=== PATIENT | female | born 1995 ===

== ENCOUNTER 2016-10-09 20:08 | Emergency (ER) | payer BC ==
[2016-10-09 21:01] VITALS: RESP 18
[2016-10-09] MEDS ORDERED: Sodium Chloride 0.9% 1,000 ML IV ONE (21:15)
--- NOTE | 2016-10-09 21:16 | C.PDOC ---
History Of Present Illness 21 year old female who presents to the ER with a complaint of cramping periumbilical pain and diarrhea. Patient states she has relief with bowel movement; she also claims she is and had her outpatient HCG done at [facility], does not want STORE PERSON evaluation. Denies fever or chills. Time Seen by Provider: 10/09/16 21:11 Chief Complaint (Nursing): Abdominal Pain History Per: Patient History/Exam Limitations: no limitations Onset/Duration Of Symptoms: Hrs Current Symptoms Are (Timing): Still Present Location Of Pain/Discomfort: Periumbilical Radiation Of Pain To:: None Quality Of Discomfort: Cramping Associated Symptoms: Diarrhea. denies: Fever, Chills Exacerbating Factors: None Alleviating Factors: None Recent travel outside of the [place]: No Abnormal Vaginal Bleeding: No Past Medical History Reviewed: Historical Data, Nursing Documentation, Vital Signs Vital Signs: Last Vital Signs Temp 97.9 F 10/09/16 23:18 Pulse 95 H 10/09/16 23:18 Resp 18 10/09/16 23:18 BP 118/79 10/09/16 23:18 Pulse Ox 97 10/09/16 23:18 - Medical History PMH: Diabetes Surgical History: No Surg Hx Family History: States: Unknown Family Hx - Social History Hx Alcohol Use: No Hx Substance Use: No - Immunization History Hx Tetanus Toxoid Vaccination: No Hx Influenza Vaccination: No Hx Pneumococcal Vaccination: No Review Of Systems Constitutional: Negative for: Fever, Chills Gastrointestinal: Positive for: Abdominal Pain, Diarrhea Physical Exam - Physical Exam Appears: Other (obese, hersuit, buffalo hump, prounounced hair on body/back) Skin: Other (strech aj, ? stria.) Head: Atraumatic, Normacephalic Oral Mucosa: Moist Chest: Symmetrical, No Tenderness Cardiovascular: Rhythm Regular, No Murmur Respiratory: Normal Breath Sounds, No Rales, No Rhonchi, No Wheezing Gastrointestinal/Abdominal: Soft, Tenderness (Periumbilical) Pelvic: No Adnexal Tenderness Neurological/Psych: Oriented x3, Normal Speech, Normal Cognition ED Course And Treatment - Laboratory Results Result Diagrams: 10/09/16 21:26 10/09/16 21:26 Lab Interpretation: Abnormal (+ leukocytosis, Quant HCG 361 (low for ? 6-8 wks) O+ blood (per mother @ bedside)) Urine POC: Positive O2 Sat by Pulse Oximetry: 96 Pulse Ox Interpretation: Normal Progress Note: Morphine, zofran, and IV fluids administered. Reevaluation Time: 23:08 Reassessment Condition: Improved Medical Decision Making Medical Decision Making: missed AB (prior elevated QHCG @ [facility] unknown) crampy abd pain and diarrhea with relief suggest diarrheal illness diet and exercise educated. Disposition Doctor Will See Patient In The: Office Counseled Patient/Family Regarding: Studies Performed, Diagnosis - Disposition Referrals: [facility] [Outside] Disposition: HOME/ ROUTINE Disposition Time: 23:09 Condition: GOOD Additional Instructions: please repeat the Quant HCG (hormone of ) in 3 days (10/12) today 10/09 QHCG 361 (low) Diet and exercise precautions. Instructions: Threatened Miscarriage (ED), Irritable Bowel Syndrome (ED), Chronic Diarrhea (ED) - Clinical Impression Clinical Impression: Diarrhea, Threatened in first trimester - Scribe Statement The provider has reviewed the documentation as recorded by the Scribmariam Newby All medical record entries made by the Scribe were at my direction and personally dictated by me. I have reviewed the chart and agree that the record accurately reflects my personal performance of the history, physical exam, medical decision making, and the department course for this patient. I have also personally directed, reviewed, and agree with the discharge instructions and disposition.
[2016-10-09] MEDS ORDERED: Sodium Chloride 0.9% 1,000 ML ONE (21:18)
[2016-10-09] MEDS ORDERED: Morphine 4 MG/ML VIAL ONE (21:24)
[2016-10-09 21:36] LABS: BASO # 0.1 K/uL (0.0-0.2); BASO % 0.3 % (0.0-2.0); EOS # 0.1 K/uL (0.0-0.7); EOS % 0.7 % (0.0-4.0); LYMPH # 2.5 K/uL (1.0-4.3); LYMPH % 12.8 % (20.0-40.0); MEAN CELL VOLUME 87.4 fL (81.0-99.0); MEAN CORPUSCULAR HEMOGLOBIN 29.9 pg (27.0-31.0); MEAN CORPUSCULAR HGB CONC 34.2 g/dL (33.0-37.0); MEAN PLATELET VOLUME 9.4 fL (7.2-11.7); MONO # 0.9 K/uL (0.0-0.8); MONO % 4.9 % (0.0-10.0); NEUT # 15.6 K/uL (1.8-7.0); NEUT % 81.3 % (50.0-75.0); RBC 4.68 Mil/uL (3.80-5.20); RED CELL DISTRIBUTION WIDTH 12.8 % (11.5-14.5); WHITE BLOOD COUNT 19.2 K/uL (4.8-10.8)
[2016-10-09 21:55] LABS: ALB/GLOB RATIO 1.2 (1.0-2.1); AST/SGOT 21 U/L (14-36); BLOOD UREA NITROGEN 9 mg/dL (7-17); GFR AFRICAN-AMERICAN > 60; GFR NON-AFRICAN AMERICAN > 60
[2016-10-09 21:56] LABS: ALT/SGPT 34 U/L (9-52); CALCIUM 8.8 mg/dl (8.6-10.4)
--- NOTE | 2016-10-09 22:46 | US ---
EXAM: US Pelvis, transabdominal and transvaginal CLINICAL HISTORY: 21 years old, female; Pain; Pelvic pain; ; Additional info: 3 weeks preg, periumbilical pain. Beta hCG is pending TECHNIQUE: Real-time transabdominal and transvaginal pelvic ultrasound (complete) with image documentation. Transvaginal imaging was used for better evaluation of the endometrium and adnexa. COMPARISON: No relevant prior studies available. FINDINGS: Uterus/cervix: The uterus is anteverted and anteflexed and measures 8.3 x 4.8 x 5.9 cm. The endometrial stripe is thickened measuring 2.1 cm. No intrauterine gestation is detected. No myometrial mass. Right ovary: The right ovary measures 4.7 x 3.8 x 4.6 cm. 2 anechoic foci are detected within the right ovary. The largest measures 2.4 x 1.5 x 2.3 cm. The smaller measures 1.8 x 1.6 x 1.6 cm. No septations or internal debris are noted.. Normal blood flow. Left ovary: Unremarkable in echogenicity and size measuring 3.4 x 2.6 x 3.4 cm. No mass. Normal blood flow. Free fluid: No free fluid. IMPRESSION: No intrauterine gestation is identified. Please correlate with the serum beta hCG. Two simple right ovarian cysts, the largest measuring 2.4 cm in greatest dimension.
[2016-10-09 23:18] VITALS: BP 118/79; PULSE 95; TEMP 97.9
[2016-10-10 01:55] VITALS: O2SAT 96
== END 2016-10-09 23:18 | disposition home or self-care (01) ==
LOC: C.ER 20:08
DX: O20.0 Threatened abortion (principal); Z3A.01 Less than 8 weeks gestation of pregnancy; R19.7 Diarrhea, unspecified
CPT/HCPCS: 76830; 76856; 80053; 84702; 84703; 85025; 86850; 86900; 96361; 96374; 96375; 99284; J2270; J2405; J7040

== ENCOUNTER 2016-10-20 19:34 | Emergency (ER) | payer BC, MEDICAID ==
[2016-10-20 20:10] VITALS: RESP 18
[2016-10-20 20:48] LABS: SQUAMOUS EPITHIAL 3 /hpf (0-5); URINE BACTERIA RARE (<OCC); URINE BILIRUBIN NEGATIVE (NEGATIVE); URINE BLOOD NEGATIVE (NEGATIVE); URINE CLARITY Clear (Clear); URINE COLOR Yellow (YELLOW); URINE GLUCOSE (UA) NORMAL (Normal); URINE LEUKOCYTE ESTERASE NEG Leu/uL (Negative); URINE NITRATE NEGATIVE (NEGATIVE); URINE PROTEIN NEGATIVE (NEGATIVE); URINE UROBILINOGEN NORMAL mg/dL (0.2-1.0)
[2016-10-20 21:19] LABS: BASO # 0.1 K/uL (0.0-0.2); BASO % 0.4 % (0.0-2.0); EOS # 0.2 K/uL (0.0-0.7); EOS % 1.2 % (0.0-4.0); HEMOGLOBIN 13.6 g/dL (11.0-16.0); LYMPH # 3.3 K/uL (1.0-4.3); LYMPH % 20.9 % (20.0-40.0); MEAN CELL VOLUME 88.7 fL (81.0-99.0); MEAN CORPUSCULAR HEMOGLOBIN 30.3 pg (27.0-31.0); MEAN CORPUSCULAR HGB CONC 34.2 g/dL (33.0-37.0); MEAN PLATELET VOLUME 8.8 fL (7.2-11.7); MONO % 6.2 % (0.0-10.0); NEUT # 11.2 K/uL (1.8-7.0); NEUT % 71.3 % (50.0-75.0); RBC 4.49 Mil/uL (3.80-5.20); RED CELL DISTRIBUTION WIDTH 12.9 % (11.5-14.5); WHITE BLOOD COUNT 15.7 K/uL (4.8-10.8)
[2016-10-20 21:25] LABS: ALBUMIN 3.9 g/dL (3.5-5.0)
[2016-10-20 21:28] LABS: ALB/GLOB RATIO 1.2 (1.0-2.1); ALT/SGPT 44 U/L (9-52); AST/SGOT 19 U/L (14-36); BLOOD UREA NITROGEN 7 mg/dL (7-17); GFR AFRICAN-AMERICAN > 60; GFR NON-AFRICAN AMERICAN > 60
[2016-10-20 21:29] LABS: CALCIUM 8.6 mg/dl (8.6-10.4)
--- NOTE | 2016-10-20 22:30 | C.PDOC ---
History Of Present Illness 21 year old female who is 6 weeks presents to the ER with a complaint of brown discharge and intermittent abdominal cramping for the past week. Patient has not had any care, she reports her first appointment is in 2 weeks. Denies dysuria or hematuria. Time Seen by Provider: 10/20/16 20:13 Chief Complaint (Nursing): Female Genitourinary History Per: Patient History/Exam Limitations: no limitations Onset/Duration Of Symptoms: Days Current Symptoms Are (Timing): Still Present Quality Of Discomfort: Cramping Associated Symptoms: denies: Urinary Symptoms Alleviating Factors: None Recent travel outside of the [place]: No Abnormal Vaginal Bleeding: No Past Medical History Reviewed: Historical Data, Nursing Documentation, Vital Signs Vital Signs: Last Vital Signs Temp 97.7 F 10/20/16 22:42 Pulse 79 10/20/16 22:42 Resp 18 10/20/16 22:42 BP 100/63 10/20/16 22:42 Pulse Ox 99 10/20/16 22:42 - Medical History PMH: Diabetes Surgical History: No Surg Hx Family History: States: Unknown Family Hx - Social History Hx Alcohol Use: No Hx Substance Use: No - Immunization History Hx Tetanus Toxoid Vaccination: No Hx Influenza Vaccination: No Hx Pneumococcal Vaccination: No Review Of Systems Constitutional: Negative for: Fever, Chills Gastrointestinal: Negative for: Nausea, Vomiting Genitourinary: Positive for: Vaginal Discharge. Negative for: Dysuria, Hematuria Physical Exam - Physical Exam Appears: Non-toxic, No Acute Distress Skin: Normal Color, Warm, Dry Head: Atraumatic, Normacephalic Oral Mucosa: Moist Chest: Symmetrical, No Tenderness Cardiovascular: Rhythm Regular, No Murmur Respiratory: Normal Breath Sounds, No Rales, No Rhonchi, No Wheezing Gastrointestinal/Abdominal: Soft, No Tenderness Pelvic: Vaginal Discharge, No Cervix Open (Closed) Neurological/Psych: Oriented x3, Normal Speech, Normal Cognition ED Course And Treatment - Laboratory Results Result Diagrams: 10/20/16 21:12 10/20/16 21:12 O2 Sat by Pulse Oximetry: 96 (Room air) Pulse Ox Interpretation: Normal Progress Note: US and labs ordered. Patient is stable in the ER, labs and US report reviewed; will discharge home and instruct to follow up with OB/ QA ANALYST. Disposition Counseled Patient/Family Regarding: Diagnosis, Need For Followup - Disposition Referrals: [facility] [Outside] Disposition: HOME/ ROUTINE Disposition Time: 22:30 Condition: STABLE Additional Instructions: Please follow up with PMD / QA ANALYST Return to ER if worse Instructions: Threatened Miscarriage (ED) Forms: [employer] (Lithuanian) - Clinical Impression Clinical Impression: Threatened in early - Scribe Statement The provider has reviewed the documentation as recorded by the Scribe Trevor Newby All medical record entries made by the Scribe were at my direction and personally dictated by me. I have reviewed the chart and agree that the record accurately reflects my personal performance of the history, physical exam, medical decision making, and the department course for this patient. I have also personally directed, reviewed, and agree with the discharge instructions and disposition.
[2016-10-20 22:43] VITALS: BP 100/63; PULSE 79; TEMP 97.7
[2016-10-21 01:51] VITALS: O2SAT 96
--- NOTE | 2016-10-21 08:41 | US ---
Pelvic ultrasound History: Vaginal bleeding. Comparison: None available. Technique: Real-time sonography was performed through the pelvis utilizing transabdominal and transvaginal techniques. Comparison: 10/09/2016 Findings: Uterus: 10.1 x 5.5 x 5.8 centimeters. Anteverted. Cervix measures 3.9 centimeters. Intrauterine . Intrauterine gestational sac measures 1.4 centimeters corresponding to a gestational age of 5 weeks and 4 days. Yolk sac measures 4.2 millimeters. [place]-rump length measures 3.1 millimeters corresponding to a gestational age of 5 weeks 6 days. heart rate of 117 beats per minute. Small amount of free fluid within the pelvic cul-de-sac. Right ovary: 5.8 x 4.5 x 4.3 centimeters. Normal flow. Small hypoechoic cyst measuring 3.7 x 2.6 x 3.6 centimeters and 2.2 x 1.9 x 2.0 centimeters. Left ovary: 3.1 x 3.1 x 3.0 centimeters. Normal flow. Impression: Single live intrauterine gestation corresponding to a gestational age of approximately 5 weeks and 6 days by crown-rump length of 3.1 millimeters. heart rate of 117 beats per minute. Right ovarian cysts. Additional findings as above. These findings were preliminarily reported at 10:21 p.m. on 10/20/[address] Farhan Rodriguez from [facility].
== END 2016-10-20 22:43 | disposition home or self-care (01) ==
LOC: C.ER 19:34
DX: O20.0 Threatened abortion (principal); Z3A.01 Less than 8 weeks gestation of pregnancy

== ENCOUNTER 2016-11-10 18:12 | Emergency (ER) | payer BC, MEDICAID ==
[2016-11-10 18:15] VITALS: BMI 35.5
[2016-11-10] MEDS ORDERED: Sodium Chloride 0.9% 1,000 ML IV ONE (19:39)
--- NOTE | 2016-11-10 19:39 | C.PDOC ---
History Of Present Illness 21 year old female who is 9 weeks , P:0 A:1, who presents to the ER with a complaint of vaginal bleeding that began 2 hours RECORDIST. Denies fever, chills, nausea, or vomiting. Time Seen by Provider: 11/10/16 19:37 Chief Complaint (Nursing): Female Genitourinary History Per: Patient History/Exam Limitations: no limitations Current Symptoms Are (Timing): Still Present Quality Of Discomfort: Unable To Describe Associated Symptoms: denies: Fever, Chills, Nausea, Vomiting, Urinary Symptoms Alleviating Factors: None Recent travel outside of the [place]: No Abnormal Vaginal Bleeding: Yes : 2 Para: 0 Miscarriage: 1 Past Medical History Reviewed: Historical Data, Nursing Documentation, Vital Signs Vital Signs: Last Vital Signs Temp 98.3 F 11/10/16 18:15 Pulse 83 11/10/16 18:15 Resp 18 11/10/16 18:15 BP 122/85 11/10/16 18:15 Pulse Ox 98 11/10/16 20:46 - Medical History PMH: Diabetes Surgical History: No Surg Hx Family History: States: No Known Family Hx - Social History Hx Alcohol Use: No Hx Substance Use: No - Immunization History Hx Tetanus Toxoid Vaccination: No Hx Influenza Vaccination: No Hx Pneumococcal Vaccination: No Review Of Systems Constitutional: Negative for: Fever, Chills Gastrointestinal: Negative for: Nausea, Vomiting, Abdominal Pain Genitourinary: Positive for: Vaginal Bleeding Physical Exam - Physical Exam Appears: Non-toxic Skin: Warm, Dry Oral Mucosa: Moist Chest: Symmetrical, No Tenderness Cardiovascular: Rhythm Regular, No Murmur Respiratory: No Rales, No Rhonchi, No Wheezing Gastrointestinal/Abdominal: Soft, Tenderness (Mild) Neurological/Psych: Oriented x3 ED Course And Treatment - Laboratory Results Result Diagrams: 11/10/16 19:49 11/10/16 19:49 O2 Sat by Pulse Oximetry: 98 (Room air) Pulse Ox Interpretation: Normal - CT Scan/US Pelvic US Other Rad Studies (CT/US): Read By Radiologist, Radiology Report Reviewed CT/US Interpretation: EXAM: US First Trimester, Transabdominal. EXAM DATE/TIME: 11/10/2016 7:39 PM. CLINICAL HISTORY: 21 years old, female; Signs and symptoms; Lmp or gestational age (in weeks): 08/30/16; Antepartum. complications; Bleeding; ; Additional info: Vag bleed 9 weeks preg. TECHNIQUE: Real-time transabdominal obstetrical ultrasound of the maternal pelvis and a first trimester. with image documentation. COMPARISON: US - PREG 1ST TRIMESTER/OB TV 10/20/2016 9:35:22 PM. FINDINGS: Gestation: There is a single intrauterine gestation. Gestational sac has mean diameter 32.3 mm. [place] rump length measures approximately 24.3 mm. There is embryonic heart rate of 188 beats. per minute. A yolk sac is present, internal diameter measures 4 mm. There is a 13 x 7 mm. subchorionic hemorrhage. Uterus: Uterus measures approximately 10.7 x 6.1 x 7.2 cm. Ovaries: Right ovary measures 5.5 x 3 x 4.3 cm. There is a dominant follicle in the right ovary. Left. ovary measures 3.7 x 2 x 3.1 cm. There are small follicles.There is flow in both ovaries on Doppler. imaging. Free fluid: There is no free fluid. IMPRESSION: 8 week 5 day single living intrauterine gestation, estimated date of delivery 04/05;. interval growth and development since the prior study; small subchorionic hemorrhage. Progress Note: Blood work, pelvic US, and urinalysis ordered. IV fluids administered. Reevaluation Time: 20:46 Reassessment Condition: Improved Disposition Counseled Patient/Family Regarding: Studies Performed, Diagnosis, Need For Followup - Disposition Referrals: Gallo Martin, MICHEAL, WELDER/FABRICATOR [Advanced Practice Nurse] - Disposition: HOME/ ROUTINE Disposition Time: 19:39 Condition: FAIR Additional Instructions: Please return if symptoms recur Instructions: Threatened Miscarriage (ED), Subchorionic Hemorrhage (ED) Forms: [employer] (Khmer) - Clinical Impression Clinical Impression: Threatened , Subchorionic hemorrhage - Scribe Statement The provider has reviewed the documentation as recorded by the Scribmariam Newby All medical record entries made by the Scribe were at my direction and personally dictated by me. I have reviewed the chart and agree that the record accurately reflects my personal performance of the history, physical exam, medical decision making, and the department course for this patient. I have also personally directed, reviewed, and agree with the discharge instructions and disposition.
[2016-11-10 19:54] LABS: BASO # 0.1 K/uL (0.0-0.2); BASO % 0.6 % (0.0-2.0); EOS # 0.1 K/uL (0.0-0.7); EOS % 0.7 % (0.0-4.0); HEMATOCRIT 40.3 % (34.0-47.0); LYMPH # 3.4 K/uL (1.0-4.3); LYMPH % 24.3 % (20.0-40.0); MEAN CELL VOLUME 87.3 fL (81.0-99.0); MEAN CORPUSCULAR HEMOGLOBIN 30.7 pg (27.0-31.0); MEAN CORPUSCULAR HGB CONC 35.1 g/dL (33.0-37.0); MEAN PLATELET VOLUME 9.9 fL (7.2-11.7); MONO # 0.8 K/uL (0.0-0.8); MONO % 5.5 % (0.0-10.0); RED CELL DISTRIBUTION WIDTH 12.6 % (11.5-14.5); WHITE BLOOD COUNT 14.1 K/uL (4.8-10.8)
[2016-11-10 20:01] LABS: RBC URINE 1519 /hpf (0-3); URINE BACTERIA OCC (<OCC); URINE BILIRUBIN NEGATIVE (NEGATIVE); URINE BLOOD 3+ (NEGATIVE); URINE COLOR Yellow (YELLOW); URINE GLUCOSE (UA) NORMAL (Normal); URINE KETONE 1+ mg/dL (NEGATIVE); URINE LEUKOCYTE ESTERASE NEG Leu/uL (Negative); URINE PROTEIN 1+ mg/dL (NEGATIVE); URINE UROBILINOGEN NORMAL mg/dL (0.2-1.0); WBC URINE 1 /hpf (0-5)
[2016-11-10 20:03] LABS: CHLORIDE 97 mmol/L (98-107)
[2016-11-10 20:04] LABS: POTASSIUM 3.5 mmol/L (3.6-5.2); SODIUM 136 mmol/L (132-148)
[2016-11-10 20:06] LABS: ALB/GLOB RATIO 1.2 (1.0-2.1); AST/SGOT 26 U/L (14-36); BILIRUBIN,TOTAL 0.8 mg/dL (0.2-1.3); BLOOD UREA NITROGEN 8 mg/dL (7-17); CARBON DIOXIDE 24 mmol/L (22-30); GFR AFRICAN-AMERICAN > 60; TOTAL PROTEIN 7.8 g/dL (6.3-8.3)
[2016-11-10 20:07] LABS: ALKALINE PHOSPHATASE 54 U/L (38-126); ALT/SGPT 55 U/L (9-52); CALCIUM 9.5 mg/dl (8.6-10.4); GLUCOSE,RANDOM 72 mg/dL (65-105)
--- NOTE | 2016-11-10 20:35 | US ---
EXAM: US First Trimester, Transabdominal EXAM DATE/TIME: 11/10/2016 7:39 PM CLINICAL HISTORY: 21 years old, female; Signs and symptoms; Lmp or gestational age (in weeks): 08/30/16; Antepartum complications; Bleeding; ; Additional info: Vag bleed 9 weeks preg TECHNIQUE: Real-time transabdominal obstetrical ultrasound of the maternal pelvis and a first trimester with image documentation. COMPARISON: US - PREG 1ST TRIMESTER/OB TV 10/20/2016 9:35:22 PM FINDINGS: Gestation: There is a single intrauterine gestation. Gestational sac has mean diameter 32.3 mm. [place] rump length measures approximately 24.3 mm. There is embryonic heart rate of 188 beats per minute. A yolk sac is present, internal diameter measures 4 mm. There is a 13 x 7 mm subchorionic hemorrhage. Uterus: Uterus measures approximately 10.7 x 6.1 x 7.2 cm. . Ovaries: Right ovary measures 5.5 x 3 x 4.3 cm. There is a dominant follicle in the right ovary. Left ovary measures 3.7 x 2 x 3.1 cm. There are small follicles.There is flow in both ovaries on Doppler imaging. Free fluid: There is no free fluid. IMPRESSION: 8 week 5 day single living intrauterine gestation, estimated date of delivery 06/17/17; interval growth and development since the prior study; small subchorionic hemorrhage
[2016-11-10 21:09] VITALS: BP 144/76; PULSE 85; RESP 20; TEMP 98.7; O2SAT 95
== END 2016-11-10 21:08 | disposition home or self-care (01) ==
LOC: C.ER 18:12
DX: O20.0 Threatened abortion (principal); Z3A.09 9 weeks gestation of pregnancy
CPT/HCPCS: 76801; 80053; 81001; 84702; 85025; 86850; 86900; 99285; J7040

== ENCOUNTER 2017-03-04 14:26 | Emergency (ER) | payer MEDICAID ==
[2017-03-04 14:26] VITALS: BMI 35.5
--- NOTE | 2017-03-04 16:00 | OBHP ---
Datetime: 03/04/2017 15:50 IP Adm Impression: , intrauterine Admit Comment, IP Provider: 21 y/o @ 25 wks Type II DM report LUQ pain x 1 week, tolerable b ut slightly increased earlier today to 6/10 radiating to back. Pt denies any fever, chills, nause, vo miting, CP, SOB, urinary freuqency, urgney, incomplete emptying, blood in urine, constipation. pt rep rots Type II DM dx at childhood mangment intially with Metformin 500mg BID and increased to 1000mg BI D with adn follows with PCP Dr Veronica cartwright also [facility]. Pt reports care has been uncomplicanated and admits she is not complicant with blood glucose monitoring. 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 reports hx of ovarian cyst years ago, no intervention PMH: Type II DM since childhood PSH: Denies MEDS: Metformin 1000mg BID, PNV NKDA SHX: negagive Etoh/tobacco/drugs FHX: Mother and father Type II DM A/P @ 25 wks GA with non specific LUQ pain, no evidence of labor -f/u CBC, CMP, Amylase, lipase, UA -PO hyrdation -Cont anand adn efm -Tyelnol prn pain -Fingerstick -Pt counsled on improtance of blood glucse monitoring with Tpye II DM due to risks not limited to malbeing Pelvic Type - PN: Adequate Extremities - PN: Normal Abdomen - PN: Normal Back - PN: Normal Breast - PN: Not Done Lungs - PN: Normal Heart - PN: Normal Thyroid - PN: Normal Neurologic - PN: Not Done HEENT - PN: Normal General - PN: Normal FHR - Baseline A Provider: 145 Contraction Comments Provider: none Comments, ACOG Physical Exam: Abd: gravid, FH: 27cm, no papable ctx, non tendner, no guarding, no re bound tenderness, no rigidity, no LUQ tendenress VE: long/clsoted posterion no uteiner or cervical tendnerss BACK: negative flank / cva b/l Gestation - Est Wks by US: 25.0 EGA AdmitDate IP: 25.0 Vital Signs Provider: Reviewed IP Chief Complaint: Other NICHD Variability Prov Fetus A: Moderate 6-25bpm NICHD Decel Fetus A IP Provider: None Dilatation, Provider: 0 Effacement, Provider: 0 Station, Provider: -3 Genitourinary Exam: Normal DTRs - PN: Normal
[2017-03-04 16:38] LABS: BASO % 0.3 % (0.0-2.0); EOS # 0.1 K/uL (0.0-0.7); EOS % 0.6 % (0.0-4.0); HEMATOCRIT 36.5 % (34.0-47.0); LYMPH # 1.7 K/uL (1.0-4.3); LYMPH % 15.8 % (20.0-40.0); MEAN CELL VOLUME 88.4 fL (81.0-99.0); MEAN CORPUSCULAR HEMOGLOBIN 30.3 pg (27.0-31.0); MEAN CORPUSCULAR HGB CONC 34.3 g/dL (33.0-37.0); MEAN PLATELET VOLUME 9.4 fL (7.2-11.7); MONO # 0.6 K/uL (0.0-0.8); MONO % 5.9 % (0.0-10.0); RED CELL DISTRIBUTION WIDTH 12.7 % (11.5-14.5); WHITE BLOOD COUNT 10.9 K/uL (4.8-10.8)
[2017-03-04 16:50] LABS: ALB/GLOB RATIO 0.9 (1.0-2.1); ALKALINE PHOSPHATASE 53 U/L (38-126); ALT/SGPT 37 U/L (9-52); AMYLASE 67 U/L (30-110); AST/SGOT 14 U/L (14-36); BILIRUBIN,TOTAL 0.4 mg/dL (0.2-1.3); BLOOD UREA NITROGEN 4 mg/dL (7-17); CALCIUM 8.7 mg/dl (8.6-10.4); CARBON DIOXIDE 26 mmol/L (22-30); CHLORIDE 103 mmol/L (98-107); GFR AFRICAN-AMERICAN > 60; GLUCOSE,RANDOM 105 mg/dL (65-105); POTASSIUM 3.5 mmol/L (3.6-5.2); SODIUM 136 mmol/L (132-148); TOTAL PROTEIN 7.9 g/dL (6.3-8.3)
[2017-03-04 16:51] LABS: RBC URINE 1 /hpf (0-3); URINE BACTERIA RARE (<OCC); URINE BILIRUBIN NEGATIVE (NEGATIVE); URINE BLOOD NEGATIVE (NEGATIVE); URINE CALCIUM OXALATE CRYSTALS FEW /hpf (<OCC); URINE COLOR Yellow (YELLOW); URINE GLUCOSE (UA) 2+ mg/dL (Normal); URINE KETONE TRACE mg/dL (NEGATIVE); URINE LEUKOCYTE ESTERASE NEG Leu/uL (Negative); URINE PROTEIN NEGATIVE (NEGATIVE); URINE UROBILINOGEN NORMAL mg/dL (0.2-1.0); WBC URINE 2 /hpf (0-5)
--- NOTE | 2017-03-04 17:00 | OBDCSUM ---
Datetime: 03/04/2017 16:58 Discharged to, Provider: Home Follow up at, Provider: Clinic Disch Instr Activity: Normal activity Disch Instr Diet: Regular Discharge Instructions, Provider: Routine instructions given Follow up in weeks, Provider: 1 week Disch Referrals: None Contraception discussed, Prov: Yes Disch Activity Restrictions: No sexual activity; Nothing in vagina - [place], tampons, douche Discharge Comment, Provider: If pain returns, nause, ovmitng, CP, SOB, vb, discharge, leakage, retur n to ER importance of blood glucose d/w patient Discharge Diagnosis Prov Other: luq pain resolved Contraception after Delivery: Not Planning to Use
[2017-03-04 21:27] VITALS: BP 113/67; PULSE 91; RESP 18; TEMP 97.7; O2SAT 99
== END 2017-03-04 17:14 | disposition home or self-care (01) ==
LOC: C.EROB 14:26 → C.ER 14:26 → C.EROB 17:14
DX: O26.892 Other specified pregnancy related conditions, second trimester (principal); R10.12 Left upper quadrant pain; Z3A.25 25 weeks gestation of pregnancy

== ENCOUNTER 2017-08-10 19:56 | Emergency (ER) | payer BC, MEDICAID ==
[2017-08-10 19:57] VITALS: BMI 35.5
[2017-08-10 20:06] VITALS: BP 138/83; PULSE 91; TEMP 98.4; O2SAT 99
--- NOTE | 2017-08-10 21:51 | C.PDOC ---
History Of Present Illness 22 year old female presents to the ED for evaluation of sore throat and throat swelling which began 3 days ago. Patient denies fever, chills, shortness of breath, or voice changes. Time Seen by Provider: 08/10/17 20:13 Chief Complaint (Nursing): ENT Problem History Per: Patient History/Exam Limitations: None Onset/Duration Of Symptoms: Days (3) Current Symptoms Are (Timing): Still Present Quality (Mouth/Throat): Swelling Past Medical History Reviewed: Historical Data, Nursing Documentation, Vital Signs Vital Signs: Last Vital Signs Temp 98.4 F 08/10/17 20:03 Pulse 91 H 08/10/17 20:03 Resp 20 08/10/17 22:20 BP 138/83 08/10/17 20:03 Pulse Ox 99 08/10/17 21:53 - Medical History PMH: Diabetes Denies: Chronic Kidney Disease Surgical History: No Surg Hx Family History: States: Unknown Family Hx - Social History Hx Alcohol Use: No Hx Substance Use: No - Immunization History Hx Tetanus Toxoid Vaccination: No Hx Influenza Vaccination: No Hx Pneumococcal Vaccination: No Review Of Systems Constitutional: Negative for: Fever, Chills ENT: Positive for: Throat Pain, Throat Swelling Respiratory: Negative for: Shortness of Breath Physical Exam - Physical Exam Appears: Non-toxic, No Acute Distress Skin: Normal Color, Warm, Dry Head: Atraumatic, Normacephalic Eye(s): bilateral: Normal Inspection Ear(s): Bilateral: Normal Nose: Normal, No Discharge Oral Mucosa: Moist Throat: Erythema, Exudate (tonsillar ), No Drooling, No Mass, Other (patent airway, uvula midline) Neck: Supple Chest: Symmetrical, No Deformity, No Tenderness Cardiovascular: Rhythm Regular, No Murmur Respiratory: Normal Breath Sounds, No Rales, No Rhonchi, No Wheezing Neurological/Psych: Oriented x3, Normal Speech, Normal Cognition Gait: Steady ED Course And Treatment O2 Sat by Pulse Oximetry: 99 (on RA) Pulse Ox Interpretation: Normal Progress Note: Amoxicillin PO and Motrin PO administered. On re-examination, patient is resting comfortably, remains afebrile and is showing no signs of distress. Patient reports an improvement in her symptoms and is stable for discharge. Patient is advised to follow up with her PMD within 1-2 days for further evaluation and/or return to the ED if symptoms persist or worsen. Reassessment Condition: Improved Disposition - Disposition Disposition: HOME/ ROUTINE Disposition Time: 21:51 Condition: STABLE Additional Instructions: Follow up with your PMD within 1-2 days. Return to ED if feel worse. Prescriptions: Amoxicillin 500 mg PO Q8 #30 tab Ibuprofen [Motrin Tab] 600 mg PO Q8 #30 tab Instructions: Sore Throat in Adults Forms: [employer] (Mohawk) - Clinical Impression Clinical Impression: Pharyngitis - PA / TIRE BALANCER / Resident Statement MD/DO has reviewed & agrees with the documentation as recorded. - Scribe Statement The provider has reviewed the documentation as recorded by the Scribe (Rebeka Acevedo) All medical record entries made by the Scribe were at my direction and personally dictated by me. I have reviewed the chart and agree that the record accurately reflects my personal performance of the history, physical exam, medical decision making, and the department course for this patient. I have also personally directed, reviewed, and agree with the discharge instructions and disposition.
[2017-08-10 22:22] VITALS: RESP 20
== END 2017-08-10 22:20 | disposition home or self-care (01) ==
LOC: C.ER 19:56
DX: J02.9 Acute pharyngitis, unspecified (principal)

== ENCOUNTER 2017-10-03 00:12 | Emergency (ER) | payer BC ==
[2017-10-03 00:12] VITALS: BMI 35.5
[2017-10-03 00:23] VITALS: BP 131/83; PULSE 110; RESP 20; TEMP 99.1; O2SAT 98
[2017-10-03 00:46] LABS: SQUAMOUS EPITHIAL 9 /hpf (0-5); URINE BILIRUBIN NEGATIVE (NEGATIVE); URINE BLOOD 1+ (NEGATIVE); URINE CLARITY Hazy (Clear); URINE COLOR Yellow (YELLOW); URINE GLUCOSE (UA) NORMAL (Normal); URINE LEUKOCYTE ESTERASE 3+ Leu/uL (Negative); URINE PROTEIN 1+ mg/dL (NEGATIVE); URINE UROBILINOGEN NORMAL mg/dL (0.2-1.0)
[2017-10-03 00:54] LABS: HCG,QUALITATIVE URINE NEGATIVE (NEGATIVE)
--- NOTE | 2017-10-03 01:05 | C.PDOC ---
History Of Present Illness 22 year old female with a Hx of recurrent UTI presents to the ER with a complaint of dysuria and mild hematuria for the past day. Denies fever, nausea, vomiting, vaginal discharge, or vaginal bleeding. Time Seen by Provider: 10/03/17 00:15 Chief Complaint (Nursing): Female Genitourinary History Per: Patient History/Exam Limitations: no limitations Onset/Duration Of Symptoms: Days Current Symptoms Are (Timing): Still Present Quality Of Discomfort: Unable To Describe Associated Symptoms: denies: Fever, Chills, Nausea, Vomiting, Other (Vaginal discharge) Alleviating Factors: None Recent travel outside of the [place]: No Abnormal Vaginal Bleeding: No Past Medical History Reviewed: Historical Data, Nursing Documentation, Vital Signs Vital Signs: Last Vital Signs Temp 99.1 F 10/03/17 00:19 Pulse 110 H 10/03/17 00:19 Resp 20 10/03/17 00:19 BP 131/83 10/03/17 00:19 Pulse Ox 98 10/03/17 01:05 - Medical History PMH: Diabetes Family History: States: Unknown Family Hx - Social History Hx Alcohol Use: No Hx Substance Use: No - Immunization History Hx Tetanus Toxoid Vaccination: No Hx Influenza Vaccination: No Hx Pneumococcal Vaccination: No Review Of Systems Constitutional: Negative for: Fever, Chills Gastrointestinal: Negative for: Nausea, Vomiting Genitourinary: Positive for: Dysuria, Hematuria. Negative for: Vaginal Discharge, Vaginal Bleeding Physical Exam - Physical Exam Appears: Non-toxic Skin: Normal Color, Warm, Dry Head: Atraumatic, Normacephalic Eye(s): bilateral: Normal Inspection Gastrointestinal/Abdominal: Soft, No Tenderness Back: No CVA Tenderness, No Paraspinal Tenderness Neurological/Psych: No Oriented x3, No Normal Speech ED Course And Treatment O2 Sat by Pulse Oximetry: 98 (Room air) Pulse Ox Interpretation: Normal Progress Note: UA done, results were positive for UTI. Patient started on macrobid and pyridium and advised to follow up with PMD. Disposition Counseled Patient/Family Regarding: Diagnosis, Need For Followup, Rx Given - Disposition Referrals: [facility] [Outside] Disposition: HOME/ ROUTINE Disposition Time: 01:02 Condition: STABLE Additional Instructions: Please follow up with PMD Take meds as directed Return to ER if ER if worse Prescriptions: Nitrofurantoin Macrocrystals [Macrobid] 1 cap PO BID #14 cap Phenazopyridine HCl [Pyridium] 100 mg PO TID #6 tab Instructions: Urinary Tract Infection, Adult (DC) Forms: [facility] (Mosotho) - Clinical Impression Clinical Impression: Urinary tract infection - [place] / [place] / Resident Statement MD/DO has reviewed & agrees with the documentation as recorded. - Scribe Statement The provider has reviewed the documentation as recorded by the Scribmariam Newby All medical record entries made by the Yingibmariam were at my direction and personally dictated by me. I have reviewed the chart and agree that the record accurately reflects my personal performance of the history, physical exam, medical decision making, and the department course for this patient. I have also personally directed, reviewed, and agree with the discharge instructions and disposition.
== END 2017-10-03 01:06 | disposition home or self-care (01) ==
LOC: C.ER 00:12
DX: N39.0 Urinary tract infection, site not specified (principal)

== ENCOUNTER 2018-07-30 20:41 | Emergency (ER) | payer BC ==
[2018-07-30 20:41] VITALS: BMI 35.5
[2018-07-30 20:54] VITALS: BP 119/83; PULSE 98; TEMP 99.7; O2SAT 98
[2018-07-30 21:57] LABS: SQUAMOUS EPITHIAL 2 /hpf (0-5); URINE BACTERIA RARE (<OCC); URINE BILIRUBIN NEGATIVE (NEGATIVE); URINE BLOOD 2+ (NEGATIVE); URINE CLARITY Clear (Clear); URINE COLOR Yellow (YELLOW); URINE GLUCOSE (UA) NORMAL (Normal); URINE LEUKOCYTE ESTERASE NEG Leu/uL (Negative); URINE PROTEIN NEGATIVE (NEGATIVE); URINE UROBILINOGEN NORMAL mg/dL (0.2-1.0)
[2018-07-30 22:02] LABS: HCG,QUALITATIVE URINE NEGATIVE (NEGATIVE)
--- NOTE | 2018-07-30 22:30 | C.PDOC ---
History Of Present Illness 23 year old female presents to the ED c/o dysuria and urinary frequency for the past 2 days. Patient reports symptoms similar to her previous UTI. Patient also c/o white vaginal discharge and itching. Patient denies fever, chills, nausea, vomit, diarrhea, back pain. Time Seen by Provider: 07/30/18 20:54 Chief Complaint (Nursing): Female Genitourinary History Per: Patient History/Exam Limitations: no limitations Onset/Duration Of Symptoms: Days Current Symptoms Are (Timing): Still Present Associated Symptoms: Urinary Symptoms. denies: Nausea, Vomiting, Diarrhea, Constipation Recent travel outside of the [place]: No Additional History Per: Patient Abnormal Vaginal Bleeding: No Past Medical History Reviewed: Historical Data, Nursing Documentation, Vital Signs Vital Signs: Last Vital Signs Temp 99.7 F H 07/30/18 20:52 Pulse 98 H 07/30/18 20:52 Resp 16 07/30/18 20:52 BP 119/83 07/30/18 20:52 Pulse Ox 98 07/30/18 20:52 Primary Care Provider: FAMILY PROVIDER,NO - Medical History PMH: Diabetes Denies: Chronic Kidney Disease Surgical History: No Surg Hx Family History: States: Unknown Family Hx - Social History Hx Alcohol Use: No Hx Substance Use: No - Immunization History Hx Tetanus Toxoid Vaccination: No Hx Influenza Vaccination: No Hx Pneumococcal Vaccination: No Review Of Systems Except As Marked, All Systems Reviewed And Found Negative. Constitutional: Negative for: Fever, Chills Cardiovascular: Negative for: Chest Pain Respiratory: Negative for: Shortness of Breath Gastrointestinal: Negative for: Nausea, Vomiting, Abdominal Pain Genitourinary: Positive for: Dysuria, Frequency, Vaginal Discharge. Negative for: Vaginal Bleeding Musculoskeletal: Negative for: Back Pain Skin: Negative for: Rash Neurological: Negative for: Weakness, Numbness Physical Exam - Physical Exam Appears: Non-toxic, No Acute Distress Skin: Normal Color, Warm, No Rash Head: Atraumatic, Normacephalic Eye(s): bilateral: Normal Inspection, PERRL, EOMI Ear(s): Bilateral: Normal Oral Mucosa: Moist Throat: No Erythema, No Exudate Neck: Normal ROM, Supple Chest: Symmetrical, No Tenderness Cardiovascular: Rhythm Regular Respiratory: Normal Breath Sounds Gastrointestinal/Abdominal: Normal Exam, Soft, No Tenderness, No Guarding, No Rebound, No Hernia Back: No CVA Tenderness, No Vertebral Tenderness, No Paraspinal Tenderness Pelvic: Other (Deferred by the patient) Extremity: Normal ROM, No Tenderness, Capillary Refill, No Swelling Neurological/Psych: Oriented x3, Normal Speech, Normal Motor Gait: Steady ED Course And Treatment - Laboratory Results Lab Results: Urine Color Yellow (YELLOW) 07/30/18 21:06 Urine Clarity Clear (Clear) 07/30/18 21:06 Urine pH 7.0 (5.0-8.0) 07/30/18 21:06 Ur Specific [place] 1.012 (1.003-1.030) 07/30/18 21:06 Urine Protein Negative mg/dL (NEGATIVE) 07/30/18 21:06 Urine Glucose (UA) Normal mg/dL (Normal) 07/30/18 21:06 Urine Ketones Negative mg/dL (NEGATIVE) 07/30/18 21:06 Urine Blood 2+ (NEGATIVE) H 07/30/18 21:06 Urine Nitrate Negative (NEGATIVE) 07/30/18 21:06 Urine Bilirubin Negative (NEGATIVE) 07/30/18 21:06 Urine Urobilinogen Normal mg/dL (0.2-1.0) 07/30/18 21:06 Ur Leukocyte Esterase Neg [place]/uL (Negative) 07/30/18 21:06 Urine WBC (Auto) 1 /hpf (0-5) 07/30/18 21:06 Urine RBC (Auto) 1 /hpf (0-3) 07/30/18 21:06 Ur Squamous Epith Cells 2 /hpf (0-5) 07/30/18 21:06 Urine Bacteria Rare (<OCC) 07/30/18 21:06 Urine HCG, Qual Negative (NEGATIVE) 07/30/18 21:06 Urine HCG, Qual Negative (NEGATIVE) 07/30/18 21:06 O2 Sat by Pulse Oximetry: 98 (on Ra) Pulse Ox Interpretation: Normal Medical Decision Making Medical Decision Making: UA is negative at this time but the patient is symptomatic. Pt agrees to start antibiotics and wait for the culture results. Pt states that she has white vaginal discharge which is typical of her yeast infections. The pt decline pelvic exam at this time . Disposition - Disposition Referrals: [facility] [Outside] Disposition: HOME/ ROUTINE Disposition Time: 22:30 Condition: GOOD Additional Instructions: Follow up with the medical doctor within 1-2 days. Return if worsened. 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 - Scribe Statement The provider has reviewed the documentation as recorded by the Scribe Lam Felder All medical record entries made by the Scribe were at my direction and personally dictated by me. I have reviewed the chart and agree that the record accurately reflects my personal performance of the history, physical exam, medical decision making, and the department course for this patient. I have also personally directed, reviewed, and agree with the discharge instructions and disposition.
[2018-07-30 22:41] VITALS: RESP 20
== END 2018-07-30 22:40 | disposition home or self-care (01) ==
LOC: C.ER 20:41
DX: N39.0 Urinary tract infection, site not specified (principal)